=== PATIENT | female | born 1950 | race Caucasian/White ===

== ENCOUNTER → 2016-09-27 | Outpatient (CLI) | payer MEDICARE, BC ==
[~2016-09-27] MED LIST: ALBUTEROL17 GM INH; AMOXICILLIN875 MG PO; BACTRIM DS TABL1 TAB PO; BENADRYL25 M1 PO; CEPHALEXIN500 M1 PO; CIPRO PO; CLOBETASOL 0.0560 GM TOP; COUMADIN PO; COUMADIN3 MG PO; COUMADIN6 MG PO; CRESTOR PO; CRESTOR40 MG PO; CRESTOR5 MG; CYMBALTA PO; DOXYCYCLINE PO; FLOMAX0.4 M1 PO; GABAPENTIN300 MG PO; HYDROCHLOROTHIA25 MG PO; HYDROCODON-ACE1 EAC7 PO; HYDROCODONE-APA1 T56 PO; INDERAL20 MG PO; JANUVIA PO; KEFLEX500 M1 PO; LASIX PO; LASIX20 MG PO; LEVOTHYROXINE50 MC1 PO; LORTAB 5/500 TA1 TA1 PO; MIRALAX17 G2 PO; NIASPAN PO; NORCO1 TAB 10/3 PO; PANTOPRAZOLE SO40 MG PO; PHENERGAN PO; PHENERGAN12.5 MG PO; PREDNISONE PO; PREVACID PO; PROPRANOLOL HCL20 MG PO; PROTONIX PO; PYRIDIUM PO; SKELAXIN PO; SYNTHROID PO; TOPAMAX PO; ZITHROMAX PO; ZOCOR PO
--- NOTE | ~2016-09-27 | CR7 ---
[facility] A Service of [facility] & [facility] RADIOLOGY TEXT RESULTS PATIENT: FARIBA RUDOLPH LOCATION: [facility] : 50 UNIT #: [id number] AGE: [address]: Duke Sethi MD SEX: F ORDER DR: [id number] [facility] [address] [place], [place] [address] [id number] O MR#: [id number] Acc #: [id number] NAME: FARIBA RUDOLPH : 1950 SEX: F STUDY DATE/TIME: 09/27/2016 10:31 UNIT: [facility] ROOM: STUDY DESCRIPTION: CR Abdomen Single AP View Attending Physician: Duke Sethi M.D. Referring Physician: Duke Sethi M.D. Ordering Physician: Duke Sethi M.D. Primary Care Physician: Tesfaye Eugene M.D. MEDICAL IMAGING REPORT This report is preliminary unless electronic signature is present EXAM Abdominal radiograph INDICATIONS Renal calculi. Followup. Mild bilateral flank pain for the past 3 years. PROCEDURE 2 supine views of the abdomen COMPARISON Abdomen and pelvis CT 09/30/2015 FINDINGS Faint calculi at the lower pole of the left kidney. No visible calculus along the course of the ureters or in the bladder. IMPRESSION Faint calculi at the lower pole of the left kidney. Dictated by... Jem Gaona M.D. THIS IS AN ELECTRONICALLY VERIFIED REPORT Jem Gaona M.D. at 09/29/2016 6:52 AM EED/obed TD: 09/28/2016 10:56 JOB #: [id number] MEDICAL IMAGING REPORT Page 1 of 1 COPY
== END | disposition home or self-care (01) ==
LOC: CRAD 10:12
DX: N20.0 Calculus of kidney (principal)
CPT/HCPCS: 74000